=== PATIENT | female | born 1965 | race Two or more races ===

== ENCOUNTER 2017-11-29 13:57 | Emergency (ER) | payer SELFPAY ==
--- NOTE | 2017-11-29 14:23 | ER Document Report ---
ED Medical Screen (RME) - General Chief Complaint: Arm Pain Stated Complaint: DIZZINESS,SHORTNESS OF BREATH Time Seen by Provider: 11/29/17 14:12 Notes: RAPID MEDICAL EVALUATION DISCLOSURE I have seen this patient as part of a Rapid Medical Evaluation and, if applicable, placed any initially appropriate orders. The patient will be seen and fully evaluated, including a full history and physical exam, by a provider ( in Main ED or Fast Track) when a room becomes available. 52-year-old female here with complaints of shortness of breath and dizziness that started within the past day. The shortness of breath and dizziness is not worse with exertion or walking. It is not worse with lying flat. She does not have any associated chest pain discomfort tightness headache. She also complains of some left arm numbness that has been ongoing for the past 2 months , daily, episodic, lasting 15 minutes per episode. The arm numbness occurs almost always after she lays down to go to sleep. She is able to improve and resolve the symptoms by shaking her arm and having her massage the arm. The symptoms started back up again this morning. EXAM CTAB RRR TRAVEL OUTSIDE OF THE [place] IN LAST 30 DAYS: No - Related Data Allergies/Adverse Reactions: No Known Allergies Allergy (Unverified 11/29/17 13:58) Past Medical History - Social History Chew tobacco use (# tins/day): No Frequency of alcohol use: Rare Drug Abuse: None Renal/ Medical History: Denies: Hx Peritoneal Dialysis Past Surgical History: Reports: Hx Appendectomy, Hx Section - 1 Physical Exam - Vital signs Vitals: Temp Pulse Resp BP Pulse Ox 98.0 F 70 14 140/89 H 99 11/29/17 14:02 11/29/17 14:02 11/29/17 14:02 11/29/17 14:02 11/29/17 14:02 Course - Vital Signs Vital signs: Temp Pulse Resp BP Pulse Ox 98.0 F 70 14 140/89 H 99 11/29/17 14:02 11/29/17 14:02 11/29/17 14:02 11/29/17 14:02 11/29/17 14:02
[2017-11-29 14:54] LABS: ABSOLUTE BASOPHILS # (AUTO) 0.1 10^3/uL (0.0-0.2); ABSOLUTE EOSINOPHILS # (AUTO) 0.1 10^3/uL (0.0-0.6); ABSOLUTE LYMPHOCYTES (AUTO) 2.3 10^3/uL (0.5-4.7); ABSOLUTE MONOCYTES (AUTO) 0.5 10^3/uL (0.1-1.4); ABSOLUTE NEUT (AUTO) 5.8 10^3/uL (1.7-8.2); BASOPHILS % (AUTO) 0.7 % (0-2); EOSINOPHILS % (AUTO) 1.5 % (0-6); HEMATOCRIT 41.1 % (36.0-47.0); HEMOGLOBIN 13.8 g/dL (12.0-15.5); MEAN CORPUSCULAR HEMOGLOBIN 31.3 pg (27.0-33.4); MEAN CORPUSCULAR HGB CONC 33.7 g/dL (32.0-36.0); MEAN CORPUSCULAR VOLUME 93 fl (80-97); MONOCYTES % (AUTO) 5.8 % (3-13); PLATELET COUNT 278 10^3/uL (150-450); RED BLOOD COUNT 4.42 10^6/uL (3.72-5.28); TOTAL CELLS COUNTED % (AUTO) 100 %; WHITE BLOOD COUNT 8.8 10^3/uL (4.0-10.5)
--- NOTE | 2017-11-29 15:07 | RADIOLOGY REPORT (SQ) ---
EXAM DESCRIPTION: CHEST 2 VIEWS COMPLETED DATE/TIME: 11/29/2017 2:49 pm REASON FOR STUDY: SOB back pain COMPARISON: None. EXAM PARAMETERS: NUMBER OF VIEWS: two views TECHNIQUE: Digital Frontal and Lateral radiographic views of the chest acquired. RADIATION DOSE: NA LIMITATIONS: none FINDINGS: LUNGS AND PLEURA: No opacities, masses or pneumothorax. No pleural effusion. MEDIASTINUM AND HILAR STRUCTURES: No masses or contour abnormalities. HEART AND VASCULAR STRUCTURES: Heart normal size. No evidence for failure. BONES: No acute findings. HARDWARE: None in the chest. OTHER: No other significant finding. IMPRESSION: NO ACUTE RADIOGRAPHIC FINDING IN THE CHEST. TECHNICAL DOCUMENTATION: JOB ID: [id number] [employer]- All Rights Reserved Reading location - IP/workstation name: [email or web address]
[2017-11-29 15:12] LABS: ANION GAP 10 (5-19); BLOOD UREA NITROGEN 12 mg/dL (7-20); CALCIUM 9.8 mg/dL (8.4-10.2); CARBON DIOXIDE 27 mmol/L (22-30); CHLORIDE 108 mmol/L (98-107); GLUCOSE 97 mg/dL (75-110); SODIUM 145.2 mmol/L (137-145)
[2017-11-29 15:23] LABS: NT PRO BNP 85 pg/mL (5-900)
[2017-11-29 15:24] LABS: TROPONIN I < 0.012 ng/mL
[2017-11-29] MEDS ORDERED: MECLIZINE HCL 25 MG TABLET PO ONE (17:14)
--- NOTE | 2017-11-29 17:37 | ER Document Report ---
ED General - General Chief Complaint: Arm Pain Stated Complaint: DIZZINESS,SHORTNESS OF BREATH Time Seen by Provider: 11/29/17 14:12 TRAVEL OUTSIDE OF THE [place] IN LAST 30 DAYS: No - HPI Notes: 52-year-old female with no known medical problems presents with dizziness and lightheadedness since this morning. She reports a sensation of spinning with position change that improves with sitting still. She denies headache. She has had intermittent episodes of shortness of breath for the past 6 months. Usually this occurs with eating and also occurs randomly. Does not change with exertion. No chest pain. She has had these episodes of dizziness in the past, but has never been evaluated. Also reports intermittent episode of tingling in her left arm that wakes concern from sleep and improves with massage. Was seen at urgent care and advised to come to the emergency department for further evaluation. Also reports some discomfort in her left ankle. No history of coronary disease. Patient has been told her blood pressure runs low. She was not orthostatic at urgent care. - Related Data Allergies/Adverse Reactions: No Known Allergies Allergy (Unverified 11/29/17 13:58) Past Medical History - Social History Smoking Status: Never Smoker Chew tobacco use (# tins/day): No Frequency of alcohol use: Rare Drug Abuse: None Family History: Reviewed & Not Pertinent Patient has suicidal ideation: No Patient has homicidal ideation: No Renal/ Medical History: Denies: Hx Peritoneal Dialysis Past Surgical History: Reports: Hx Appendectomy, Hx Section - 1 Review of Systems - Review of Systems Notes: REVIEW OF SYSTEMS: CONSTITUTIONAL: -fevers, -chills, + fatigue, lightheadedness, dizziness EENT: -eye pain, -difficulty swallowing, -nasal congestion CARDIOVASCULAR: -chest pain, -syncope. RESPIRATORY: -cough, +SOB GASTROINTESTINAL: -abdominal pain, -nausea, -vomiting, -diarrhea GENITOURINARY: -dysuria, -hematuria MUSCULOSKELETAL: -back pain, -neck pain SKIN: -rash or skin lesions. HEMATOLOGIC: -easy bruising or bleeding. LYMPHATIC: -swollen, enlarged glands. NEUROLOGICAL: -altered mental status or loss of consciousness, -headache, negative weakness, + tingling left arm PSYCHIATRIC: -anxiety, -depression. Physical Exam - Vital signs Vitals: Temp Pulse Resp BP Pulse Ox 98.0 F 70 14 140/89 H 99 11/29/17 14:02 11/29/17 14:02 11/29/17 14:02 11/29/17 14:02 11/29/17 14:02 Interpretation: Hypertensive - Notes Notes: PHYSICAL EXAMINATION: GENERAL: Well-appearing, well-nourished and in no acute distress. HEAD: Atraumatic, normocephalic. EYES: Pupils equal round and reactive to light, extraocular movements intact, conjunctiva are normal. No nystagmus. ENT: nares patent, oropharynx clear without exudates. Moist mucous membranes. Bilateral middle ear effusion. No erythema. No sinus tenderness. NECK: Normal range of motion, supple without lymphadenopathy LUNGS: Breath sounds clear to auscultation bilaterally and equal. No wheezes rales or rhonchi. HEART: Regular rate and rhythm, no chest wall tenderness ABDOMEN: Soft, nontender, normoactive bowel sounds. No guarding, no rebound. No masses appreciated. EXTREMITIES: Normal range of motion, no pitting or edema. No cyanosis. NEUROLOGICAL: Cranial nerves grossly intact. Normal speech, normal gait. Normal sensory and motor exams. Normal gait. Normal finger to nose, rapid alternating movements, heel to nunez PSYCH: Normal mood, normal affect. SKIN: Warm, Dry, normal turgor, no rashes or lesions noted. Course - Re-evaluation Re-evalutation: 11/29/17 17:35 Symptoms have been present intermittently for several months. Symptoms not acute in onset and worsens with position change. She has bilateral middle ear effusions. Family states she has been swimming a lot lately. No nystagmus. Likely peripheral etiology. Will give Antivert. Advised Mucinex D. Mild hypertension, advised primary care follow-up. Discuss possible MRI if symptoms do not improve. No indication for emergent imaging at this time. Labs unremarkable. 11/29/17 17:43 No risk factors for pulmonary embolism. No current dyspnea. Low suspicion for pulmonary embolism or coronary artery disease as cause for dyspnea. Possible anxiety. - Vital Signs Vital signs: Temp Pulse Resp BP Pulse Ox 98.0 F 70 14 140/89 H 99 11/29/17 14:02 11/29/17 14:02 11/29/17 14:02 11/29/17 14:02 11/29/17 14:02 - Laboratory Result Diagrams: 11/29/17 14:39 11/29/17 14:39 Laboratory results interpreted by me: 11/29/17 14:39 Sodium 145.2 H Chloride 108 H Discharge - Discharge Clinical Impression: Vertigo Hypertension Qualifiers: Hypertension type: unspecified Qualified Code(s): I10 - Essential (primary) hypertension Dyspnea Qualifiers: Dyspnea type: unspecified Qualified Code(s): R06.00 - Dyspnea, unspecified Condition: Good Disposition: HOME, SELF-CARE Instructions: Vertigo ([facility]) Additional Instructions: Return for any worsening or concerning symptoms. You must obtain care from a primary care physician for further evaluation of elevated blood pressure, shortness of breath, and dizziness. If dizziness continues, you may need MRI. Take Mucinex D. Take Antivert as needed for dizziness. Prescriptions: Meclizine HCl [Antivert 25 mg Tablet] 25 mg PO TID PRN #21 tablet PRN Reason: Forms: Elevated Blood Pressure Referrals: JULAINNA WALKER MD [ACTIVE STAFF] - Follow up as needed Print Language: Kiswahili
[2017-11-29 17:59] VITALS: BP 125/72
--- NOTE | 2017-11-29 22:56 | EKG REPORT ---
SEVERITY:- BORDERLINE ECG - SINUS RHYTHM PROBABLE LEFT ATRIAL ABNORMALITY BORDERLINE T ABNORMALITIES, ANTERIOR LEADS : Confirmed by: Aziza Guo 29-Nov-2017 22:56:01
== END 2017-11-29 17:55 | disposition home or self-care (01) ==
LOC: ER 13:57
DX: R42 Dizziness and giddiness (principal); R06.02 Shortness of breath; I10 Essential (primary) hypertension; R20.2 Paresthesia of skin; R53.83 Other fatigue
CPT/HCPCS: 36415; 71046; 80048; 83880; 84484; 85025; 93005; 93010; 99285

== ENCOUNTER → 2018-10-30 | Outpatient (CLI) | payer SELFPAY ==
--- NOTE | 2018-10-30 18:44 | RADIOLOGY REPORT (SQ) ---
EXAM DESCRIPTION: CHEST 2 VIEWS COMPLETED DATE/TIME: 10/30/2018 6:35 pm REASON FOR STUDY: R05 COUGH COMPARISON: 11/29/2017 EXAM PARAMETERS: NUMBER OF VIEWS: two views TECHNIQUE: Digital Frontal and Lateral radiographic views of the chest acquired. RADIATION DOSE: NA LIMITATIONS: none FINDINGS: LUNGS AND PLEURA: No opacities, masses or pneumothorax. No pleural effusion. MEDIASTINUM AND HILAR STRUCTURES: No masses or contour abnormalities. HEART AND VASCULAR STRUCTURES: Heart normal size. No evidence for failure. BONES: No acute findings. HARDWARE: None in the chest. OTHER: No other significant finding. IMPRESSION: NO ACUTE RADIOGRAPHIC FINDING IN THE CHEST. TECHNICAL DOCUMENTATION: JOB ID: [id number] [employer]- All Rights Reserved Reading location - IP/workstation name: [email or web address]
== END ==
LOC: RAD 18:16
PROVIDERS: ATTEND Nurse Practitioner Family
DX: R05 Cough (principal)
CPT/HCPCS: 71046

== ENCOUNTER 2019-08-16 02:45 | Emergency (ER) | payer SELFPAY ==
[2019-08-16] MEDS ORDERED: HYDROMORPHONE HCL INJ/PF 2 MG/ML AMPULE IV ONE (03:06)
[2019-08-16] MEDS ORDERED: ONDANSETRON HCL INJ/PF 4 MG/2 ML SDV IV ONE (03:06)
--- NOTE | 2019-08-16 03:15 | ER Document Report ---
Entered by FELIBERTO FAUST SCRIBE 08/16/19 0303 Acting as scribe for:SAVANAH JIMÉNEZ IV, MD ED GI/ - General Chief Complaint: Abdominal Pain Stated Complaint: FLANK PAIN Time Seen by Provider: 08/16/19 03:01 Mode of Arrival: Ambulatory Information source: Patient Notes: This 54 year old female patient presents to the ED today with complaints of upper abdominal pain that started prior to arrival. Patient reports that the pain radiates to her back. Patient also reports x1 episode of vomiting. Patient denies dysuria or history of hypertension. Patient has a past surgical history of an appendectomy and section. TRAVEL OUTSIDE OF THE [place] IN LAST 30 DAYS: No - Related Data Allergies/Adverse Reactions: No Known Allergies Allergy (Unverified 11/29/17 13:58) Past Medical History - General Information source: Patient - Social History Smoking Status: Never Smoker Cigarette use (# per day): No Chew tobacco use (# tins/day): No Smoking Education Provided: No Family History: Reviewed & Not Pertinent Patient has suicidal ideation: No Patient has homicidal ideation: No Past Surgical History: Reports: Hx Appendectomy, Hx Section - x1 Review of Systems - Review of Systems Constitutional: No symptoms reported EENT: No symptoms reported Cardiovascular: No symptoms reported Respiratory: No symptoms reported Gastrointestinal: See HPI, Abdominal pain, Nausea, Vomiting Genitourinary: See HPI. denies: Dysuria Female Genitourinary: No symptoms reported Musculoskeletal: See HPI, Back pain Skin: No symptoms reported Hematologic/Lymphatic: No symptoms reported Neurological/Psychological: No symptoms reported -: Yes All other systems reviewed and negative Physical Exam - Vital signs Vitals: Pulse Resp Pulse Ox 63 24 H 100 08/16/19 02:57 08/16/19 02:57 08/16/19 02:57 - General General appearance: Alert In distress: Moderate - HEENT Head: Normocephalic, Atraumatic Eyes: Normal Pupils: PERRL - Respiratory Respiratory status: No respiratory distress Chest status: Nontender Breath sounds: Normal Chest palpation: Normal - Cardiovascular Rhythm: Regular Heart sounds: Normal auscultation Murmur: No Friction rub: No Gallop: None auscultated - Abdominal Inspection: Normal Distension: No distension Bowel sounds: Normal Tenderness: Nontender - Abdomen soft Organomegaly: No organomegaly - Back Back: CVA tenderness - Positive CVA tenderness to percussion bilaterally - Extremities General upper extremity: Normal inspection General lower extremity: Normal inspection - Neurological Neuro grossly intact: Yes - Psychological Associated symptoms: Normal affect, Normal mood - Skin Skin Temperature: Warm Skin Moisture: Dry Skin Color: Normal Course - Re-evaluation Re-evalutation: 08/16/19 05:42 Results of ED MSE discussed with patient using biscuit machine operator. All questions were answered prior to discharge. Emergency signs and symptoms, reasons to return to the emergency department discussed with patient. - Vital Signs Vital signs: Temp Pulse Resp BP Pulse Ox 97.5 F 71 18 98/57 L 93 08/16/19 03:23 08/16/19 04:21 08/16/19 04:31 08/16/19 04:31 08/16/19 04:31 - Laboratory Result Diagrams: 08/16/19 03:04 08/16/19 03:04 Laboratory results interpreted by me: 08/16/19 08/16/19 08/16/19 03:04 03:04 03:04 WBC 10.9 H Chloride 108 H Glucose 151 H AST 72 H ALT 39 H Urine Blood SMALL H Ur Leukocyte Esterase SMALL H - Diagnostic Test Radiology reviewed: Reports reviewed Discharge - Discharge Clinical Impression: Acute abdominal pain Nausea and vomiting Qualifiers: Vomiting type: unspecified Vomiting Intractability: non-intractable Qualified Code(s): R11.2 - Nausea with vomiting, unspecified Condition: Good Disposition: HOME, SELF-CARE Instructions: Abdominal Pain ([facility]), Antinausea Medication ([facility]), Vomiting ([facility]) Additional Instructions: Return to the Emergency Department without delay if any worse. HOME CARE INSTRUCTIONS & INFORMATION: Thank you for choosing us for your me dical needs. We hope you're satisfied with the care you received. After you leave, you must properly care for your problem and, at the same time, observe its progress. Any condition can change. Some illnesses can change rapidly over hours or days. If your condition worsens, return to the Emergency Department or see your physician promptly. ABOUT YOUR X-RAYS AND EKG'S: If you had an EKG or X-rays taken, they have been read by the Emergency Physician. The X-rays and EKG's will also be read by a Radiologist or Summer Internship within 24 hours. If discrepancies are noted, you will be notified by telephone. Please be certain the ED has a correct telephone number & address where you can be reached. Also, realize that some fractures or abnormalities do not show up on initial X-rays. If your symptoms continue, see your physician. ABOUT YOUR LABORATORY TEST: If you had laboratory tests, the results have been reviewed by the Emergency Physician. Some test results (for example cultures) may not be available for several days. You will be contacted if any test result shows you need additional treatment. Please be certain the ED has a correct telephone number and address where you can be reached. ABOUT YOUR MEDICATIONS: You will receive instructions on how to take your medicine on the prescription label you receive. Additional information may be provided by the Pharmacy. If you have questions afterwards, call the ED for clarification or further instructions. Some prescribed medications may cause drowsiness. Do not perform tasks such as driving a car or operating machinery without consulting your Pharmacist. If you feel you need a refill of pain medication, your condition will need re-evaluation. Please do not call for a refill of any medication. ABOUT YOUR SIGNATURE: Signature of this document acknowledges to followin. Understanding that you received emergency treatment and that you may be released before al medical problems are known or treated. Please be certain the ED has a correct phone number & address where you can be reached. 2. Acknowledgement that you will arrange for follow-up care as recommended. 3. Authorization for the Emergency Physician to provide information to your follow-up Physician in order to maximize your care. AT ANY TIME, IF YOUR SYMPTOMS CHANGE SIGNIFICANTLY OR WORSEN OR YOU DEVELOP NEW SYMPTOMS, RETURN TO THE EMERGENCY DEPARTMENT IMMEDIATELY FOR RE-EVALUATION. OUR GOAL IS TO PROVIDE EXCELLENT MEDICAL CARE! WE HOPE THAT WE HAVE MET YOUR EXPECTATIONS DURING YOUR EMERGENCY DEPARTMENT VISIT AND THAT YOU FEEL YOU HAVE RECEIVED EXCELLENT CARE! Prescriptions: Ibuprofen [Ibu] 600 mg PO Q8HP PRN #15 tablet PRN Reason: pain Promethazine HCl [Phenergan 25 mg Tablet] 1 tab PO Q6H PRN #15 tablet PRN Reason: Referrals: TC WHITMORE MD [HONORARY] - Follow up as needed Print Language: Rwandan I personally performed the services described in the documentation, reviewed and edited the documentation which was dictated to the scribe in my presence, and it accurately records my words and actions.
[2019-08-16 03:21] LABS: ABSOLUTE BASOPHILS # (AUTO) 0.1 10^3/uL (0.0-0.2); ABSOLUTE EOSINOPHILS # (AUTO) 0.2 10^3/uL (0.0-0.6); ABSOLUTE LYMPHOCYTES (AUTO) 3.5 10^3/uL (0.5-4.7); ABSOLUTE MONOCYTES (AUTO) 0.6 10^3/uL (0.1-1.4); ABSOLUTE NEUT (AUTO) 6.6 10^3/uL (1.7-8.2); BASOPHILS % (AUTO) 0.5 % (0-2); EOSINOPHILS % (AUTO) 1.7 % (0-6); HEMATOCRIT 39.8 % (36.0-47.0); HEMOGLOBIN 13.6 g/dL (12.0-15.5); LYMPHOCYTES % (AUTO) 31.8 % (13-45); MEAN CORPUSCULAR HEMOGLOBIN 31.7 pg (27.0-33.4); MEAN CORPUSCULAR HGB CONC 34.3 g/dL (32.0-36.0); MEAN CORPUSCULAR VOLUME 93 fl (80-97); MONOCYTES % (AUTO) 5.2 % (3-13); PLATELET COUNT 285 10^3/uL (150-450); RED CELL DISTRIBUTION WIDTH 13.1 % (11.5-14.0); SEGMENTED NEUTROPHILS % (AUTO) 60.8 % (42-78); TOTAL CELLS COUNTED % (AUTO) 100 %; WHITE BLOOD COUNT 10.9 10^3/uL (4.0-10.5)
[2019-08-16 03:23] LABS: APPEARANCE,URINE SLIGHTLY-CLOUDY; BILIRUBIN,URINE NEGATIVE (NEGATIVE); COLOR,URINE YELLOW; GLUCOSE, URINE NEGATIVE (NEGATIVE); KETONES,URINE NEGATIVE (NEGATIVE); LEUKOCYTE ESTERASE,URINE SMALL (NEGATIVE); NITRITE,URINE NEGATIVE (NEGATIVE); PROTEIN,URINE NEGATIVE (NEGATIVE); URINE SPECIFIC GRAVITY 1.021; UROBILINOGEN,URINE NEGATIVE mg/dL (<2.0)
[2019-08-16] MEDS ORDERED: NORMAL SALINE 1000 ML 1,000 ML IV ONE (03:31)
[2019-08-16 03:36] LABS: ALBUMIN 4.1 g/dL (3.5-5.0); ALKALINE PHOSPHATASE 108 U/L (38-126); ANION GAP 9 (5-19); ASPARTATE AMINO TRANSFERASE 72 U/L (14-36); BILIRUBIN,DIRECT 0.2 mg/dL (0.0-0.4); BILIRUBIN,TOTAL 0.4 mg/dL (0.2-1.3); BLOOD UREA NITROGEN 18 mg/dL (7-20); CALCIUM 9.7 mg/dL (8.4-10.2); CARBON DIOXIDE 23 mmol/L (22-30); CHLORIDE 108 mmol/L (98-107); GLUCOSE 151 mg/dL (75-110); POTASSIUM 4.2 mmol/L (3.6-5.0); TOTAL PROTEIN 7.2 g/dL (6.3-8.2)
--- NOTE | 2019-08-16 04:36 | RADIOLOGY REPORT (SQ) ---
CT ABDOMEN AND PELVIS WITH AND WITHOUT INTRAVENOUS CONTRAST: 08/16/2019 3:32 AM CDT HISTORY: 54-year old with bilateral flank and abdominal pain. COMPARISON: None available TECHNIQUE: Axial contiguous images were obtained from the lung bases to the proximal femurs with and without intravenous intravenous contrast administered. Sagittal and coronal reconstructions were also obtained and reviewed. This exam was performed according to our departmental dose-optimization program, which includes automated exposure control, adjustment of the mA and/or KV according to the patient's size and/or use of iterative reconstruction technique. FINDINGS: No focal consolidative airspace opacities are seen. No discrete pleural effusion is seen. The visualized hepatic parenchyma is unremarkable. No focal enhancing lesion is seen. The gallbladder demonstrates no evidence of calcified gallstones The spleen, pancreas, and adrenals are normal in size and contour. The kidneys demonstrate no evidence of hydronephrosis. No renal or ureteral calculi are seen. No focal filling defect is seen at the visualized ureters, collecting systems, or urinary bladder. Bladder is minimally distended, but grossly appears unremarkable. The uterus is present. There is a calcification projecting at the right adnexa. The stomach is not well distended. The small bowel loops appear unremarkable. No pericolonic inflammatory stranding is seen. There are multiple diverticula seen within the sigmoid and descending colon, without evidence to suggest diverticulitis. The appendix appears unremarkable. There is no evidence of pneumoperitoneum or free fluid. The aorta and IVC appear normal in size. No significantly enlarged lymph nodes are seen in the abdomen or pelvis. Review of the bone show no evidence of any suspicious lytic or blastic lesions. IMPRESSION: No acute process is seen within the abdomen or pelvis.
[2019-08-16] MEDS ORDERED: PROMETHAZINE HCL INJ 25 MG/1 ML VIAL IV ONE (05:02)
[2019-08-16 06:11] VITALS: BP 117/62
== END 2019-08-16 06:12 | disposition home or self-care (01) ==
LOC: ER 02:45
DX: R11.2 Nausea with vomiting, unspecified (principal); R10.9 Unspecified abdominal pain; R10.10 Upper abdominal pain, unspecified; M54.9 Dorsalgia, unspecified
CPT/HCPCS: 99284; 96361; 96374; 96375; 36415; 83690; 85025; 80053; 81001; 74178; J1170; J2550; J2405; J7030

== ENCOUNTER → 2019-09-24 | Outpatient (CLI) | payer OTHER ==
--- NOTE | 2019-09-24 11:03 | RADIOLOGY REPORT (SQ) ---
EXAM DESCRIPTION: T SPINE AP/LAT IMAGES COMPLETED DATE/TIME: 09/24/2019 9:10 am REASON FOR STUDY: CHRONIC MIDLINE BACK PAIN M54.9 DORSALGIA, UNSPECIFIED COMPARISON: None. NUMBER OF VIEWS: Two views. TECHNIQUE: AP and lateral radiographic images acquired of the thoracic spine. LIMITATIONS: None. FINDINGS: MINERALIZATION: Normal. ALIGNMENT: No scoliotic curvature or spondylolisthesis. VERTEBRAE: The thoracic vertebral body heights are preserved. There is no fracture or segmentation a bnormality. DISCS: The intervertebral disc spaces are preserved. There are no sizable osteophytes. HARDWARE: None in the spine. MEDIASTINUM AND SOFT TISSUES: The cardiomediastinal silhouette is normal. VISUALIZED LUNG WESTFALL: Clear. OTHER: No other finding. IMPRESSION: No acute osseous abnormality of the thoracic spine. TECHNICAL DOCUMENTATION: JOB ID: [id number] 2010 [employer]- All Rights Reserved Reading location - IP/workstation name: [email or web address]
--- NOTE | 2019-09-24 11:08 | RADIOLOGY REPORT (SQ) ---
EXAM DESCRIPTION: LUMBAR SPINE COMPLETE IMAGES COMPLETED DATE/TIME: 09/24/2019 9:10 am REASON FOR STUDY: CHRONIC MIDLINE BACK PAIN M54.9 DORSALGIA, UNSPECIFIED COMPARISON: None. NUMBER OF VIEWS: Five views including obliques. TECHNIQUE: AP, lateral, oblique, and sacral radiographic images acquired of the lumbar spine. LIMITATIONS: None. FINDINGS: MINERALIZATION: Normal. SEGMENTATION: There are 5 lumbar-type vertebral bodies. There is no transitional anatomy at the lumb osacral junction. ALIGNMENT: No scoliotic curvature or spondylolisthesis. VERTEBRAE: The lumbar vertebral body heights are preserved. There is no fracture. DISCS: The intervertebral disc spaces are preserved. POSTERIOR ELEMENTS: Intact. There is no pars interarticularis defect. HARDWARE: None in the spine. PARASPINAL SOFT TISSUES: No radiographic abnormality. PELVIS: Intact. OTHER: No other finding. IMPRESSION: No acute osseous abnormality of the lumbar spine. TECHNICAL DOCUMENTATION: JOB ID: [id number] 2010 [employer]- All Rights Reserved Reading location - IP/workstation name: [email or web address]
== END ==
LOC: OD 08:41
PROVIDERS: ATTEND Nurse Practitioner Family
DX: M54.9 Dorsalgia, unspecified (principal)
CPT/HCPCS: 72070; 72110

== ENCOUNTER 2019-09-26 15:42 | Emergency (ER) | payer OTHER ==
--- NOTE | 2019-09-26 16:24 | ER Document Report ---
ED Medical Screen (RME) - General Chief Complaint: Abdominal Pain Stated Complaint: ABDOMINAL PAIN, BACK PAIN Time Seen by Provider: 09/26/19 16:20 Primary Care Provider: TORI BURRIS FNP [Primary Care Provider] - Follow up as needed Mode of Arrival: Wheelchair Information source: Patient Notes: 54-year-old female patient presented to the emergency department chief complaint for abdominal swelling and back pain. Patient reports symptoms started this morning. She states that she has some type of medical history that causes this to happen a few times a year however she is not sure what it is called in Ma[place]. She is primarily Moldovan-speaking. She denies any nausea, vomiting or diarrhea. She has not had fever. She reports a normal bowel movement this morning. Patient also complains of pain to her right lateral/posterior neck that started yesterday morning. Abdomen distended. I have greeted and performed a rapid initial assessment of this patient. A comprehensive ED assessment and evaluation of the patient, analysis of test results and completion of the medical decision making process will be conducted by additional ED providers. I have specifically instructed the patient or family members with the patient to immediately return to any nursing staff should anything change in the patient's condition or with their chief complaint. TRAVEL OUTSIDE OF THE [place] IN LAST 30 DAYS: No - Related Data Allergies/Adverse Reactions: No Known Allergies Allergy (Unverified 11/29/17 13:58) Past Medical History Renal/ Medical History: Denies: Hx Peritoneal Dialysis Past Surgical History: Reports: Hx Appendectomy, Hx Section - x1 Physical Exam - Vital signs Vitals: Temp Pulse Resp BP Pulse Ox 98.3 F 78 16 142/64 H 97 09/26/19 15:48 09/26/19 15:48 09/26/19 15:48 09/26/19 15:48 09/26/19 15:48 Course - Vital Signs Vital signs: Temp Pulse Resp BP Pulse Ox 98.3 F 78 16 142/64 H 97 09/26/19 15:48 09/26/19 15:48 09/26/19 15:48 09/26/19 15:48 09/26/19 15:48 Doctor's Discharge - Discharge Referrals: TORI BURRIS FNP [Primary Care Provider] - Follow up as needed
[2019-09-26 16:48] LABS: ABSOLUTE BASOPHILS # (AUTO) 0.1 10^3/uL (0.0-0.2); ABSOLUTE EOSINOPHILS # (AUTO) 0.1 10^3/uL (0.0-0.6); ABSOLUTE MONOCYTES (AUTO) 0.5 10^3/uL (0.1-1.4); BASOPHILS % (AUTO) 1.1 % (0-2); EOSINOPHILS % (AUTO) 1.5 % (0-6); HEMOGLOBIN 14.1 g/dL (12.0-15.5); LYMPHOCYTES % (AUTO) 23.2 % (13-45); MEAN CORPUSCULAR HGB CONC 34.4 g/dL (32.0-36.0); MEAN CORPUSCULAR VOLUME 93 fl (80-97); MONOCYTES % (AUTO) 5.2 % (3-13); PLATELET COUNT 272 10^3/uL (150-450); RED BLOOD COUNT 4.41 10^6/uL (3.72-5.28); RED CELL DISTRIBUTION WIDTH 13.3 % (11.5-14.0); TOTAL CELLS COUNTED % (AUTO) 100 %; WHITE BLOOD COUNT 8.8 10^3/uL (4.0-10.5)
[2019-09-26 16:49] LABS: APPEARANCE,URINE CLEAR; BILIRUBIN,URINE NEGATIVE (NEGATIVE); COLOR,URINE YELLOW; GLUCOSE, URINE NEGATIVE (NEGATIVE); KETONES,URINE NEGATIVE (NEGATIVE); LEUKOCYTE ESTERASE,URINE NEGATIVE (NEGATIVE); NITRITE,URINE NEGATIVE (NEGATIVE); PROTEIN,URINE NEGATIVE (NEGATIVE); URINE SPECIFIC GRAVITY 1.023; UROBILINOGEN,URINE NEGATIVE mg/dL (<2.0)
[2019-09-26 17:06] LABS: ALBUMIN 4.2 g/dL (3.5-5.0); ALKALINE PHOSPHATASE 100 U/L (38-126); ANION GAP 7 (5-19); ASPARTATE AMINO TRANSFERASE 28 U/L (14-36); BILIRUBIN,TOTAL 0.3 mg/dL (0.2-1.3); BLOOD UREA NITROGEN 17 mg/dL (7-20); CALCIUM 9.9 mg/dL (8.4-10.2); CARBON DIOXIDE 25 mmol/L (22-30); CHLORIDE 107 mmol/L (98-107); GLUCOSE 127 mg/dL (75-110); POTASSIUM 3.7 mmol/L (3.6-5.0); TOTAL PROTEIN 7.2 g/dL (6.3-8.2)
--- NOTE | 2019-09-26 17:41 | RADIOLOGY REPORT (SQ) ---
EXAM DESCRIPTION: KUB/ABDOMEN (SINGLE VIEW) IMAGES COMPLETED DATE/TIME: 09/26/2019 5:12 pm REASON FOR STUDY: abd distention COMPARISON: None. NUMBER OF VIEWS: One view. TECHNIQUE: Supine radiographic image of the abdomen acquired. LIMITATIONS: None. FINDINGS: BOWEL GAS PATTERN: Normal bowel gas pattern. No dilated loops. CALCIFICATIONS: No suspicious calcifications. SOFT TISSUES: No gross mass or suggestion of organomegaly. HARDWARE: None in the abdomen. BONES: No acute fracture. No worrisome bone lesions. OTHER: No other significant finding. IMPRESSION: NO RADIOGRAPHIC EVIDENCE FOR ACUTE ABDOMINAL DISEASE. TECHNICAL DOCUMENTATION: JOB ID: [id number] 2010 [employer]- All Rights Reserved Reading location - IP/workstation name: [email or web address]
[2019-09-26 18:18] VITALS: BP 131/73
--- NOTE | 2019-09-26 18:57 | ER Document Report ---
ED General - General Chief Complaint: Abdominal Pain Stated Complaint: ABDOMINAL PAIN, BACK PAIN Time Seen by Provider: 09/26/19 16:20 Primary Care Provider: TORI BURRIS FNP [Primary Care Provider] - Follow up as needed Mode of Arrival: Wheelchair TRAVEL OUTSIDE OF THE [place] IN LAST 30 DAYS: No - HPI Notes: Patient is a 54-year-old female who presents to the emergency department for evaluation of abdominal pain. She states is been getting is intermittently over the last 8 years. She states she gets it badly about 3 times a year. She described it as a burning. She states is over her entire abdomen. She denies any fever chills. No nausea or vomiting. No melena or hematochezia. She has normal bowel movements. She takes [id number] Prilosec 20 mg and states that seems to help. She states she has been told she needs to take it daily, but does not like this idea, so admits she has not been taking it daily. She states that she very much likes to eat spicy foods, including chili, and drinks a moderate amount of caffeine. - Related Data Allergies/Adverse Reactions: No Known Allergies Allergy (Unverified 11/29/17 13:58) Home Medications: Prilosec. tylenol. celexa Past Medical History - General Information source: Patient - Social History Smoking Status: Never Smoker Chew tobacco use (# tins/day): No Frequency of alcohol use: None Drug Abuse: None Family History: Reviewed & Not Pertinent Patient has homicidal ideation: No Renal/ Medical History: Denies: Hx Peritoneal Dialysis Past Surgical History: Reports: Hx Appendectomy, Hx Section - x1 Review of Systems - Review of Systems Gastrointestinal: See HPI -: Yes All other systems reviewed and negative Physical Exam - Vital signs Vitals: Temp Pulse Resp BP Pulse Ox 98.3 F 78 16 142/64 H 97 09/26/19 15:48 09/26/19 15:48 09/26/19 15:48 09/26/19 15:48 09/26/19 15:48 - Notes Notes: Vital signs reviewed, please refer to chart. Head is normocephalic, atraumatic. Pupils equal round, reactive to light. Neck is supple without meningismus. Heart is regular rate and rhythm. Lungs are clear to auscultation bilaterally. Abdomen is soft, diffusely tender without rebound or guarding, normoactive bowel sounds throughout. Extremities without cyanosis, clubbing. Posterior calves are nontender. Peripheral pulses are equal. Skin is warm and dry. Patient is awake, alert, neurological exam is nonfocal. Course - Re-evaluation Re-evalutation: 09/26/19 18:55 Patient presents to the emergency department for evaluation. She actually states he has no pain right now, she states he had severe pain earlier and it was helped significantly by the Prilosec. We talked at length. We talked about gastritis, acid reflux, peptic ulcer disease. We talked about dietary and lifestyle changes that might help her. I explained to her that taking the Prilosec daily was advisable. I will also recommend that she take an H2 steffanie when her pain is severe to see if it helps her pain. She understands this. She states she was here primarily because her son told her she looked pale when her pain was significant. She has no pallor right now. She is stable. Her vital signs are normal. Her lab work is unremarkable. I will send her home, encouraged her to take the omeprazole daily, encouraged lifestyle changes in regards to her diet, and return to the ED with worsening. Otherwise she is to follow-up with primary care. - Vital Signs Vital signs: Temp Pulse Resp BP Pulse Ox 98.3 F 64 18 131/73 H 97 09/26/19 18:17 09/26/19 18:17 09/26/19 18:17 09/26/19 18:17 09/26/19 18:17 - Laboratory Result Diagrams: 09/26/19 16:30 09/26/19 16:30 Laboratory results interpreted by me: 09/26/19 16:30 Glucose 127 H - Diagnostic Test Radiology reviewed: Image reviewed, Reports reviewed Radiology results interpreted by in: 09/26/19 18:56 KUB X-Ray 09/26/19 16:26 IMPRESSION: NO RADIOGRAPHIC EVIDENCE FOR ACUTE ABDOMINAL DISEASE. Discharge - Discharge Clinical Impression: Gastritis Qualifiers: Gastritis type: unspecified gastritis Chronicity: chronic Gastritis bleeding: without bleeding Qualified Code(s): K29.50 - Unspecified chronic gastritis without bleeding Condition: Stable Disposition: HOME, SELF-CARE Instructions: Gastritis ([facility]), Reflux Disease (GERD) ([facility]) Additional Instructions: Avoid spicy foods, acidic foods, caffeine, nicotine, alcohol. Please take the omeprazole daily. You can add famotidine, and [id number] medication,if your pain increases, as needed. Please follow-up with primary care next week. If you develop increased pain, vomiting, black or tarry stools, or any other new or concerning symptoms, please return to the emergency department for evaluation. Referrals: TORI BURRIS FNP [Primary Care Provider] - Follow up as needed
== END 2019-09-26 19:10 | disposition home or self-care (01) ==
LOC: ER 15:42
DX: K29.50 Unspecified chronic gastritis without bleeding (principal); R10.9 Unspecified abdominal pain
CPT/HCPCS: 36415; 74018; 80053; 81001; 83690; 85025; 99284

== ENCOUNTER 2019-12-07 03:33 | Emergency (ER) | payer OTHER ==
[2019-12-07 04:03] LABS: ABSOLUTE BASOPHILS # (AUTO) 0.1 10^3/uL (0.0-0.2); ABSOLUTE EOSINOPHILS # (AUTO) 0.2 10^3/uL (0.0-0.6); ABSOLUTE MONOCYTES (AUTO) 0.5 10^3/uL (0.1-1.4); ABSOLUTE NEUT (AUTO) 7.8 10^3/uL (1.7-8.2); EOSINOPHILS % (AUTO) 1.5 % (0-6); HEMATOCRIT 37.4 % (36.0-47.0); HEMOGLOBIN 12.8 g/dL (12.0-15.5); LYMPHOCYTES % (AUTO) 26.2 % (13-45); MEAN CORPUSCULAR HEMOGLOBIN 32.3 pg (27.0-33.4); MEAN CORPUSCULAR HGB CONC 34.1 g/dL (32.0-36.0); MEAN CORPUSCULAR VOLUME 95 fl (80-97); MONOCYTES % (AUTO) 3.9 % (3-13); RED BLOOD COUNT 3.96 10^6/uL (3.72-5.28); SEGMENTED NEUTROPHILS % (AUTO) 67.4 % (42-78); TOTAL CELLS COUNTED % (AUTO) 100 %; WHITE BLOOD COUNT 11.6 10^3/uL (4.0-10.5)
--- NOTE | 2019-12-07 04:24 | ER Document Report ---
Entered by FELIBERTO FAUST SCRIBE 12/07/19 0410 Acting as scribe for:SAVANAH JIMÉNEZ IV, MD ED General - General Mode of Arrival: Medic Information source: Relative - Daughter, Emergency Med Personnel TRAVEL OUTSIDE OF THE [place] IN LAST 30 DAYS: No <SAVANAH JIMÉNEZ IV - Last Filed: 12/07/19 04:24> <OSMANMIKE J - Last Filed: 12/07/19 16:29> - General Chief Complaint: Probable Seizure Stated Complaint: ALTERED MENTAL STATUS Time Seen by Provider: 12/07/19 03:40 Primary Care Provider: TORI BURRIS FNP [Primary Care Provider] - Follow up as needed Notes: This 54 year old Lebanese-speaking female patient brought in by EMS from home presents to the ED today with complaints of possible seizure-like activity that occurred just prior to arrival. ED nurse reports that the incident was witnessed by the patient's , but he was unable to give any details because he speaks Lebanese. Patient was also incontinent of urine and had a positive tongue bite per ED nurse. Daughter at bedside states that the patient complained of a right-sided CHILDRESS and right eye swelling/twitching for the last x3 days. Denies prior history of seizures. Denies any past medical history or medications. Denies any neck pain. (SAVANAH JIMÉNEZ IV) - Related Data Allergies/Adverse Reactions: No Known Allergies Allergy (Unverified 11/29/17 13:58) Past Medical History - General Information source: Relative - Daughter - Social History Smoking Status: Unknown if Ever Smoked Smoking Education Provided: No Family History: Reviewed & Not Pertinent Patient has homicidal ideation: No GI Medical History: Reports: Hx Gastroesophageal Reflux Disease Past Surgical History: Reports: Hx Appendectomy, Hx Section - x1 <SAVANAH JIMÉNEZ IV - Last Filed: 12/07/19 04:24> Review of Systems - Review of Systems Constitutional: No symptoms reported EENT: No symptoms reported Cardiovascular: No symptoms reported Respiratory: No symptoms reported Gastrointestinal: No symptoms reported Genitourinary: See HPI, Incontinence Female Genitourinary: No symptoms reported Musculoskeletal: See HPI. denies: Neck pain Skin: No symptoms reported Hematologic/Lymphatic: No symptoms reported Neurological/Psychological: See HPI, Seizure -: Yes All other systems reviewed and negative <SAVANAH JIMÉNEZ IV - Last Filed: 12/07/19 04:24> Physical Exam - General General appearance: Alert In distress: None - HEENT Head: Normocephalic Eyes: Normal Extraocular movements intact: Yes Pupils: PERRL Mouth/Lips: Other - Macerated tissue noted to left side of tongue - Respiratory Respiratory status: No respiratory distress Chest status: Nontender Breath sounds: Normal Chest palpation: Normal - Cardiovascular Rhythm: Regular Heart sounds: Normal auscultation Murmur: No Friction rub: No Gallop: None auscultated - Abdominal Inspection: Normal Distension: No distension Bowel sounds: Normal Tenderness: Nontender - Abdomen soft Organomegaly: No organomegaly - Back Back: Normal, Nontender - Extremities General upper extremity: Normal inspection General lower extremity: Normal inspection. No: Edema - Neurological Neuro grossly intact: Yes - Psychological Associated symptoms: Normal affect, Normal mood - Skin Skin irregularity: other - Abrasion noted to bridge of nose <SAVANAH JIMÉNEZ IV - Last Filed: 12/07/19 04:24> - Vital signs Vitals: Pulse Resp BP Pulse Ox 91 18 132/76 H 92 12/07/19 03:39 12/07/19 03:39 12/07/19 03:39 12/07/19 03:39 Course - Laboratory Result Diagrams: 12/07/19 03:36 12/07/19 03:36 <SAVANAH JIMÉNEZ IV - Last Filed: 12/07/19 04:24> - Laboratory Result Diagrams: 12/07/19 03:36 12/07/19 04:19 - Diagnostic Test Radiology reviewed: Image reviewed, Reports reviewed <MIKE BREWER - Last Filed: 12/07/19 16:29> - Re-evaluation Re-evalutation: 12/07/19 16:00 Patient has a meningioma extra-axial causing vasogenic edema and swelling. Patient had new onset seizure today as result of this activity of brain swelli ng. Patient has been having headache and blurred vision and symptoms over more than 1 or 2 months at this point in time. It was unknown as to what the cause of this was until today when she had her first onset of seizure activity where a CT scan was done which prompted an MRI scan for further delineation discussion of what was demonstration of what was causing her brain edema. Discussed already with Dr. from at the [facility] neurosurgery service who recommended that 1 if patient felt stable was stable and was in her condition could warrant that she could be discharged home as opposed to be transferred that was a desirable option as well as if patient was not stable enough to go home and to call back to see if we can continue to transfer process. So that is where we are at this point with the case patient feels uncomfortable and too weak at this time to be discharged home and prefers to be transferred to [facility] at this moment in time we are pending a return call from [facility] regarding transfer status. 12/07/19 16:10 In summary patient was loaded with IV Keppra 1500 mg earlier today along with IV mannitol and IV Decadron. Patient did not tolerate the mannitol because it was burning at the IV site no evidence of any allergic reaction or extravasation however the mannitol was stopped. Patient has been resting comfortably up to now she still feels generally weak all over alert. has indicated stated transfer team advised that he has accepted patient to his service which is the neurosurgery service at [facility] in [facility]. Mindful low they have a bed crunch at this time and as we speak we are not certain as to when a bed available will be available to her and until that time patient will remain on service until bed availability is obtained at [facility]. Plan is to continue patient on every 6 hours Decadron 4 mg and Keppra to control seizure activity. (MIKE BREWER) - Vital Signs Vital signs: Temp Pulse Resp BP Pulse Ox 98 F 91 21 H 142/77 H 97 12/07/19 03:50 12/07/19 03:39 12/07/19 15:01 12/07/19 15:00 12/07/19 15:01 12/07/19 16:03 Vital signs are stable (MIKE BREWER) - Laboratory Laboratory results interpreted by me: 12/07/19 12/07/19 03:36 04:19 WBC 11.6 H Plt Count 126 L Chloride 111 H Glucose 111 H Total Protein 6.2 L Albumin 3.4 L 12/07/19 16:03 Lab reports are essentially unremarkable (MIKE BREWER) - Diagnostic Test Radiology results interpreted by me: 12/07/19 16:08 Chest x-ray no acute process CT scan of head shows extensive bifrontal vasogenic edema with a large midline anterior inferior extra-axial mass MRI scan of brain shows an extra axial mass inferior and bilateral frontal lobes with a mass-effect of on the proximal optic nerves mass-effect in the midline of 5 cm ;no infarct noted no hemorrhage noted (MIKE BREWER) - EKG Interpretation by Me Additional EKG results interpreted by me: 12/07/19 16:10 Twelve-lead EKG shows normal sinus rhythm no acute process (MIKE BREWER) Critical Care Note - Critical Care Note Total time excluding time spent on procedures (mins): 65 - Management of vaso genic edema due to a mass-effect for a presumed meningioma in the anterior frontal regions of patient's brain. Also seizure disorder as a result of this condition. Discussions with neurosurgeons in the transfer center . IV fluid management, IV management of brain edema, and seizure activity control. Reviewing and discussing condition of patient with receiving neurosurgeon at [facility] <MIKE BREWER - Last Filed: 12/07/19 16:29> Discharge <SAVANAH JIMÉNEZ IV - Last Filed: 12/07/19 04:24> <MIKE BREWER - Last Filed: 12/07/19 16:29> - Discharge Clinical Impression: Meningioma, Vasogenic brain edema, Seizure Condition: Critical Disposition: [facility] Referrals: TORI BURRIS FNP [Primary Care Provider] - Follow up as needed I personally performed the services described in the documentation, reviewed and edited the documentation which was dictated to the scribe in my presence, and it accurately records my words and actions.
[2019-12-07 04:31] LABS: PLATELET COUNT 126 10^3/uL (150-450)
[2019-12-07 04:46] LABS: ALBUMIN 3.4 g/dL (3.5-5.0); ALKALINE PHOSPHATASE 82 U/L (38-126); ANION GAP 6 (5-19); ASPARTATE AMINO TRANSFERASE 28 U/L (14-36); BILIRUBIN,TOTAL 0.3 mg/dL (0.2-1.3); BLOOD UREA NITROGEN 15 mg/dL (7-20); CALCIUM 9.1 mg/dL (8.4-10.2); CARBON DIOXIDE 22 mmol/L (22-30); CHLORIDE 111 mmol/L (98-107); GLUCOSE 111 mg/dL (75-110); POTASSIUM 3.7 mmol/L (3.6-5.0); TOTAL PROTEIN 6.2 g/dL (6.3-8.2)
[2019-12-07 04:49] LABS: ALCOHOL < 10 mg/dL (NONE DETECTED)
--- NOTE | 2019-12-07 05:08 | RADIOLOGY REPORT (SQ) ---
EXAM DESCRIPTION: XR CHEST 1 VIEW COMPLETED DATE/TME: 12/07/2019 04:10 CLINICAL HISTORY: 54 years, Female, ams COMPARISON: 10/30/2018 chest NUMBER OF VIEWS: 1 TECHNIQUE: Portable chest LIMITATIONS: None. FINDINGS: The heart size is stable. Mild elevation of the right hemidiaphragm. Osteopenia. Lungs clear. No pneumothorax IMPRESSION: No acute cardiopulmonary process copyright 2010 [employer]- All Rights Reserved
--- NOTE | 2019-12-07 05:10 | RADIOLOGY REPORT (SQ) ---
CLINICAL HISTORY: headache, new onset seizure COMPARISON: None. TECHNIQUE: CT HEAD WITHOUT IV CONTRAST on 12/07/2019 4:10 AM CDT This exam was performed according to our departmental dose-optimization program, which includes automated exposure control, adjustment of the mA and/or kV according to patient size and/or use of iterative reconstruction technique. FINDINGS: There is extensive bifrontal vasogenic edema within the white matter. Hollingsworth-white differentiation is preserved. There is no hydrocephalus. There is no significant volume loss for age. The calvarium is intact. Orbits and globes are unremarkable. The paranasal sinuses are clear. Mastoid air cells are clear. IMPRESSION: Extensive nonspecific bifrontal vasogenic edema. Recommend contrast enhanced CT or preferably MRI for further evaluation.
[2019-12-07 06:36] LABS: APPEARANCE,URINE SLIGHTLY-CLOUDY; BILIRUBIN,URINE NEGATIVE (NEGATIVE); COLOR,URINE YELLOW; GLUCOSE, URINE NEGATIVE (NEGATIVE); KETONES,URINE NEGATIVE (NEGATIVE); LEUKOCYTE ESTERASE,URINE NEGATIVE (NEGATIVE); NITRITE,URINE NEGATIVE (NEGATIVE); PROTEIN,URINE NEGATIVE (NEGATIVE); URINE SPECIFIC GRAVITY 1.015; UROBILINOGEN,URINE NEGATIVE mg/dL (<2.0)
[2019-12-07 06:47] LABS: URINE AMPHETAMINES SCREEN NEGATIVE; URINE BARBITURATES SCREEN NEGATIVE; URINE BENZODIAZEPINES SCREEN NEGATIVE; URINE COCAINE SCREEN NEGATIVE; URINE MARIJUANA (THC) SCREEN NEGATIVE; URINE METHADONE SCREEN NEGATIVE; URINE PHENCYCLIDINE SCREEN NEGATIVE
--- NOTE | 2019-12-07 10:09 | RADIOLOGY REPORT (SQ) ---
EXAM DESCRIPTION: MRI HEAD COMBO IMAGES COMPLETED DATE/TIME: 12/07/2019 9:49 am REASON FOR STUDY: extensive bifrontal vasogenic edema on noncon ct COMPARISON: CT from earlier same date. TECHNIQUE: Multiplanar imaging includes noncontrasted T1, T2, FLAIR, diffusion with ADC map and post gadolinium contrast T1 sequences. Images stored on PACS. CONTRAST TYPE AND DOSE: 10 mL Prohance. RENAL FUNCTION: Not indicated. ACR Type II contrast agent associated with few, if any, unconfounded cases of NSF LIMITATIONS: None. FINDINGS: ANATOMY: Generally normal appearance with intact midline structures in appropriate vascula r flow voids. CSF SPACES: There is a large extra-axial mass inferior to the bilaterally frontal lobes. This enhanc ing lesion lifts the frontal lobes and posteriorly extends slightly inferiorly to exert mass effect o n the proximal optic nerves and abut the pituitary stalk and cavernous carotids. Enhancing dural fitz ls particularly extending laterally. The lesion is centered in the midline at extends to the right a nd left of the falx. The mass measures up to 5 cm transverse dimension. Over 2.5 cm craniocaudal. Just over 4 cm AP. Extra-axial spaces otherwise look normal. No hemorrhage or abnormal fluid. . CEREBRUM: The above-noted extra-axial lesion exerts considerable mass on the inferior aspect of the f rontal lobes with associated edema throughout the frontal lobes extending into the anterior corpus ca llosum. No other areas of abnormal enhancement. No parenchymal hemorrhage detected. POSTERIOR FOSSA: No signal alteration. No hemorrhage. No edema, masses, or mass effect. Internal galen tory canals, cerebellopontine angles, mastoids normal. No enhancing lesions. No abnormal enhancement post contrast. DIFFUSION IMAGING: Negative for acute or subacute infarction. ORBITS: No masses. Globes normal. PARANASAL SINUSES: No fluid levels. Mucosa normal. OTHER: No other significant finding. IMPRESSION: 1. Large midline anterior inferior frontal extra-axial mass. Probably a sizable meningioma, although this looks more aggressive than the typical meningioma with regional mass effect and associated bifr ontal brain edema. 2. No evidence of recent CVA. EVIDENCE OF ACUTE STROKE: NO. TECHNICAL DOCUMENTATION: JOB ID: [id number] 2010 [employer]- All Rights Reserved Reading location - IP/workstation name: [email or web address]
[2019-12-07] MEDS ORDERED: LEVETIRACETAM 1500 MG/NACL-ISO 1,500 MG/100 ML RTUPB IV ONE (10:34)
[2019-12-07] MEDS ORDERED: DEXAMETHASONE SOD PHOSPHATE INJ 4 MG/1 ML VIAL IV ONE (10:45)
[2019-12-07] MEDS ORDERED: MANNITOL IV ONE (11:15)
[2019-12-07] MEDS ORDERED: DEXTROSE 5%-LACTATED RINGERS 1,000 ML IV ONE (13:26)
--- NOTE | 2019-12-07 15:00 | RADIOLOGY REPORT (SQ) ---
EXAM DESCRIPTION: CHEST SINGLE VIEW IMAGES COMPLETED DATE/TIME: 12/07/2019 1:42 pm REASON FOR STUDY: seizure COMPARISON: 12/07/2019 EXAM PARAMETERS: NUMBER OF VIEWS: One view. TECHNIQUE: Single frontal radiographic view of the chest acquired. RADIATION DOSE: NA LIMITATIONS: None. FINDINGS: LUNGS AND PLEURA: No opacities, masses or pneumothorax. No pleural effusion. MEDIASTINUM AND HILAR STRUCTURES: No masses. Contour normal. HEART AND VASCULAR STRUCTURES: Heart normal in size. Normal vasculature. BONES: No acute findings. HARDWARE: None in the chest. OTHER: No other significant finding. IMPRESSION: NO ACUTE RADIOGRAPHIC FINDING IN THE CHEST. TECHNICAL DOCUMENTATION: JOB ID: [id number] 2010 [employer]- All Rights Reserved Reading location - IP/workstation name: [email or web address]
[2019-12-07] MEDS: DEXAMETHASONE SOD PHOSPHATE INJ 4 MG/1 ML VIAL IV SCH ×2 (17:07→21:58)
[2019-12-07] MEDS ORDERED: LEVETIRACETAM 500 MG TABLET PO SCH (18:00)
--- NOTE | 2019-12-07 19:19 | EKG REPORT ---
SEVERITY:- NORMAL ECG - SINUS RHYTHM : Confirmed by: Aziza Guo 07-Dec-2019 19:18:43
--- NOTE | 2019-12-08 00:04 | ER Document Report ---
Doctor's Note Notes: 12/07/19 23:59 Patient was turned over to me pending neurosurgery bed at [facility], but no beds are currently available and unable to say when they would be so I contacted other hospitals to see if anybody had neurosurgery beds available right now. Patient accepted to [facility] by Dr. Kapadia but they said they have no beds available and that we would have to call back every 4 hours to check again for bed availability if we want to send her there. Patient accepted to [facility] by Dr. Ramos/BRENTON Velez and they currently have beds available. [employer] [facility] is calling the other hospitals to cancel transfer there. [facility] ETA half an hour. Patient is happy to go to [facility] and nurses calling patient's daughter to let her know. Patient otherwise feels greatly improved and denies having any symptoms at this time is sleeping comfortably, but easily awakens to normal level of consciousness and has appropriate conversation every time I go into the room and talk to her. Patient remains appropriate for transfer.
[2019-12-08 00:49] VITALS: BP 101/69
== END 2019-12-08 00:49 | disposition short-term general hospital (02) ==
LOC: ER 03:33
DX: D32.0 Benign neoplasm of cerebral meninges (principal); G93.6 Cerebral edema; R56.9 Unspecified convulsions; R41.82 Altered mental status, unspecified; R51 Headache; R22.0 Localized swelling, mass and lump, head
CPT/HCPCS: 93005; 96376; 99291; 96361; 96375; 96365; 96366; 36415; 80307 ×2; 83735; 85025; 80053; 81001; 84484; 70553; 71045; 70450; 93010; A9576; J1100; J7121; J2150; J1953

== ENCOUNTER 2020-02-21 03:53 | Inpatient (IN) | payer OTHER ==
[2020-02-21] MEDS ORDERED: ONDANSETRON HCL INJ/PF 4 MG/2 ML SDV IV ONE (04:26)
[2020-02-21] MEDS ORDERED: MORPHINE SULFATE 10 MG/ML INJ IV ONE (04:26)
[2020-02-21] MEDS ORDERED: NORMAL SALINE 1000 ML 1,000 ML IV ONE (04:27)
--- NOTE | 2020-02-21 04:28 | ER Document Report ---
ED GI/ - General TRAVEL OUTSIDE OF THE [place] IN LAST 30 DAYS: No <MADHURI HEADLEY - Last Filed: 02/21/20 07:28> <JOSEPHKATIE Mag - Last Filed: 02/21/20 17:28> - General Chief Complaint: Abdominal Pain Stated Complaint: CONSTIPATION Time Seen by Provider: 02/21/20 04:19 Notes: Patient is a 55-year-old female who comes emergency department for chief complaint of severe abdominal pain and abdominal swelling. She states that symptoms started at about 11 PM last night and have not stopped. She denies nausea or vomiting, fever chills, flank pain, chest pain, urinary symptoms. La st bowel movement was earlier today which was small, last full bowel movement was about 2 days ago. She denies problems with constipation. She is not on opiates. She has had an appendectomy and a . She also reports history of brain meningioma with removal and she is on Keppra secondary to this, she is not on radiation or chemotherapy. She denies medical history otherwise. Daughter at bedside. (MADHURI HEADLEY) - Related Data Allergies/Adverse Reactions: No Known Allergies Allergy (Verified 02/21/20 04:11) Past Medical History - General Information source: Patient - Social History Smoking Status: Former Smoker Frequency of alcohol use: Rare Drug Abuse: None Lives with: Family Family History: Reviewed & Not Pertinent Patient has homicidal ideation: No Neurological Medical History: Reports: Hx Seizures Renal/ Medical History: Denies: Hx Peritoneal Dialysis Malignancy Medical History: Reports: Hx Brain Cancer - Meningioma, status post removal GI Medical History: Reports: Hx Gastroesophageal Reflux Disease Past Surgical History: Reports: Hx Appendectomy, Hx Section - x1 - Immunizations Hx Diphtheria, Pertussis, Tetanus Vaccination: Yes <MADHURI HEADLEY - Last Filed: 02/21/20 07:28> Review of Systems - Review of Systems Constitutional: No symptoms reported EENT: No symptoms reported Cardiovascular: No symptoms reported Respiratory: No symptoms reported Gastrointestinal: See HPI Genitourinary: No symptoms reported Female Genitourinary: No symptoms reported Musculoskeletal: No symptoms reported Skin: No symptoms reported Hematologic/Lymphatic: No symptoms reported Neurological/Psychological: No symptoms reported <MADHURI HEADLEY - Last Filed: 02/21/20 07:28> Physical Exam <MADHURI HEADLEY - Last Filed: 02/21/20 07:28> - Vital signs Vitals: Temp Pulse Resp BP Pulse Ox 97.5 F 82 14 138/83 H 100 02/21/20 04:00 02/21/20 04:00 02/21/20 04:00 02/21/20 04:00 02/21/20 04:00 - Notes Notes: GENERAL: Patient is alert and interactive, however she is restless and appears to be in pain HEAD: Normocephalic, atraumatic. EYES: Pupils equal, round, and reactive to light. Extraocular movements intact. ENT: Oral mucosa moist, tongue midline. Oropharynx unremarkable. Airway patent. NECK: Full range of motion. Supple. Trachea midline. No lymphadenopathy. LUNGS: Clear to auscultation bilaterally, no wheezes, rales, or rhonchi. No respiratory distress. Non-tender chest wall. HEART: Regular rate and rhythm. No murmur ABDOMEN: Abdomen appears distended, there is generalized mid to upper abdominal tenderness especially towards the epigastric and left upper quadrant areas. Lower abdomen seems benign. There is a scar in the right lower quadrant. Bowel sounds are present throughout. Otherwise unremarkable. EXTREMITIES: Moves all 4 extremities spontaneously. No edema, normal radial and dorsalis pedis pulses bilaterally. No cyanosis. BACK: no cervical, thoracic, lumbar midline tenderness. No saddle anesthesia, normal distal neurovascular exam. Moves all extremities in full range of motion. NEUROLOGICAL: Alert and oriented x3. Normal speech. Cranial nerves II through XII grossly intact. Strength 5/5 in all extremities. PSYCH: Restless SKIN: Warm, dry, normal turgor. No rashes or lesions noted. (MADHURI HEADLEY) Course - Laboratory Result Diagrams: 02/21/20 04:37 02/21/20 04:37 <MADHURI HEADLEY - Last Filed: 02/21/20 07:28> - Laboratory Result Diagrams: 02/21/20 04:37 02/21/20 04:37 <KATIE RUIZ - Last Filed: 02/21/20 17:28> - Re-evaluation Re-evalutation: CBC unremarkable, chemistry shows borderline LFTs, borderline bicarb, otherwise unremarkable. Urinalysis unremarkable. Acute abdominal series nonspecific without overt free air or obstruction. Patient is more comfortable on reevaluation but is still having waves of intermittent nausea. Because of this and patient's initial concerning evaluation I discussed with patient and decision was made to proceed with CAT scan. Differential includes bowel obstruction or less likely perforated viscus. Patient is having some discomfort and a lot of nausea and having difficulty drinking contrast, requesting nausea medication, this was provided. She has not had repeated vomiting however. 02/21/20 08:00 Report given to Senia Ruiz NP pending CAT scan results and disposition. (MADHURI HEADLEY) 02/21/20 09:12 0800-disposition given by BRENTON Dietrich. vitals are stable, patient is in no distress. Reviewed laboratory and diagnostic findings. Awaiting for CT abdomen pelvis with IV and oral contrast to results. patient evaluated at bedside. Patient has a history of brain meningioma that was removed and she is on Keppra. after speaking with daughter and patient, patient is on Prilosec for gastritis, she has never had an endoscopy. She recently established care with primary care provider, Dr. Davis. Is not complaining of any chest pain shortness of breath but is having abdominal pain. Denies any fevers or chills. Patient states that she does take her Prilosec almost daily, denies any black tarry stool, last bowel movement was yesterday. Patient states that her pain is better than when she originally came in. will obtain an ultrasound due to CT showing that there is ally-cholecystic fluid, otherwise CT of abdomen pelvis with IV and oral contrast unremarkable, no bowel obstruction, hernia, diverticulitis, appendix surgically removed, lipase normal, creatinine 0.3, BUN is 14, liver enzymes slightly elevated but nothing overtly concerning. Urinalysis unremarkable. Patient is having left upper quadrant, epigastric and right upper quadrant abdominal pain. Patient states she is feeling a little nauseous as well. Will give patient a GI cocktail as well as obtaining ultrasound of right upper quadrant. Spoke with patient and daughter regarding that likely 1100: Right upper quadrant ultrasound shows cholelithiasis and cholecystitis, liver enzymes are slightly elevated, bilirubin is normal, lipase unremarkable. 1114-consulted with Dr. Hicks, surgeon, he states he will come down and see patient patient remains n.p.o.. 02/21/20 11:39: Dr. Hicks at bedside and states that he will admit patient, she will remain n.p.o. we will start IV antibiotics and likely go to surgery tomorrow. He is requesting that her medical records of her recent brain surgery be faxed over due to patient having some anxiety about having a cholecystectomy. Vital signs are stable, patient is agreeable with plan of care. (KATIE RUIZ) - Vital Signs Vital signs: Temp Pulse Resp BP Pulse Ox 97.9 F 71 18 160/73 H 96 02/21/20 14:51 02/21/20 14:51 02/21/20 14:51 02/21/20 14:51 02/21/20 14:51 - Laboratory Laboratory results interpreted by nm: 02/21/20 02/21/20 04:37 04:40 Chloride 111 H Carbon Dioxide 20 L AST 41 H ALT 38 H Ur Leukocyte Esterase TRACE H Discharge <MADHURI HEADLEY - Last Filed: 02/21/20 07:28> - Discharge Admitting Provider: Dr. Willard Gilbert Unit Admitted: Surgical Floor <KATIE RUIZ - Last Filed: 02/21/20 17:28> - Discharge Clinical Impression: Nausea, Abdominal swelling, Cholecystitis Abdominal pain Qualifiers: Abdominal location: generalized Qualified Code(s): R10.84 - Generalized abdominal pain Condition: Stable Disposition: ADMITTED INPATIENT
[2020-02-21 04:53] LABS: ABSOLUTE BASOPHILS # (AUTO) 0.1 10^3/uL (0.0-0.2); ABSOLUTE EOSINOPHILS # (AUTO) 0.3 10^3/uL (0.0-0.6); ABSOLUTE LYMPHOCYTES (AUTO) 2.5 10^3/uL (0.5-4.7); ABSOLUTE MONOCYTES (AUTO) 0.4 10^3/uL (0.1-1.4); ABSOLUTE NEUT (AUTO) 4.5 10^3/uL (1.7-8.2); BASOPHILS % (AUTO) 1.2 % (0-2); EOSINOPHILS % (AUTO) 3.2 % (0-6); HEMATOCRIT 41.1 % (36.0-47.0); HEMOGLOBIN 14.1 g/dL (12.0-15.5); LYMPHOCYTES % (AUTO) 32.6 % (13-45); MEAN CORPUSCULAR HEMOGLOBIN 32.2 pg (27.0-33.4); MEAN CORPUSCULAR HGB CONC 34.4 g/dL (32.0-36.0); MEAN CORPUSCULAR VOLUME 93 fl (80-97); MONOCYTES % (AUTO) 5.3 % (3-13); PLATELET COUNT 264 10^3/uL (150-450); RED CELL DISTRIBUTION WIDTH 13.4 % (11.5-14.0); SEGMENTED NEUTROPHILS % (AUTO) 57.7 % (42-78); TOTAL CELLS COUNTED % (AUTO) 100 %; WHITE BLOOD COUNT 7.8 10^3/uL (4.0-10.5)
[2020-02-21 05:10] LABS: ALBUMIN 4.3 g/dL (3.5-5.0); ALKALINE PHOSPHATASE 103 U/L (38-126); ANION GAP 12 (5-19); ASPARTATE AMINO TRANSFERASE 41 U/L (14-36); BILIRUBIN,DIRECT 0.4 mg/dL (0.0-0.4); BILIRUBIN,TOTAL 0.7 mg/dL (0.2-1.3); BLOOD UREA NITROGEN 14 mg/dL (7-20); CALCIUM 9.5 mg/dL (8.4-10.2); CARBON DIOXIDE 20 mmol/L (22-30); CHLORIDE 111 mmol/L (98-107); GLUCOSE 103 mg/dL (75-110); POTASSIUM 4.4 mmol/L (3.6-5.0); TOTAL PROTEIN 7.1 g/dL (6.3-8.2)
--- NOTE | 2020-02-21 05:10 | RADIOLOGY REPORT (SQ) ---
Acute abdominal series x-ray three views on 02/21/2020 at 4:45 AM CLINICAL INDICATION: Severe generalized abdominal pain, swelling COMPARISON: Chest x-ray from 12/07/[address] abdomen and pelvis from 08/16/2019 FINDINGS: CHEST: The lungs are clear. Cardiac, hilar and mediastinal contours are within normal limits. Pulmonary vascularity is within normal limits. ABDOMEN: Calcification in the right pelvis is consistent with a phlebolith. There is no free air. Bowel gas pattern is unremarkable. No increased stool to suggest significant constipation is noted. No other abnormal calcification or mass effect is noted. No bony normality is noted. IMPRESSION: 1. No acute cardiopulmonary disease. 2. Nonspecific abdomen.
[2020-02-21 05:12] LABS: APPEARANCE,URINE CLEAR; BILIRUBIN,URINE NEGATIVE (NEGATIVE); COLOR,URINE STRAW; GLUCOSE, URINE NEGATIVE (NEGATIVE); KETONES,URINE NEGATIVE (NEGATIVE); LEUKOCYTE ESTERASE,URINE TRACE (NEGATIVE); NITRITE,URINE NEGATIVE (NEGATIVE); PROTEIN,URINE NEGATIVE (NEGATIVE); UROBILINOGEN,URINE NEGATIVE mg/dL (<2.0)
[2020-02-21] MEDS ORDERED: METOCLOPRAMIDE HCL INJ/PF 10 MG/2 ML SDV IV ONE (05:33)
--- NOTE | 2020-02-21 08:46 | RADIOLOGY REPORT (SQ) ---
EXAM DESCRIPTION: CT ABD/PELVIS WITH IV ORAL IMAGES COMPLETED DATE/TIME: 02/21/2020 8:13 am REASON FOR STUDY: abd pain and swelling COMPARISON: 08/16/2019 TECHNIQUE: CT scan of the abdomen and pelvis performed using helical scanning technique with dynamic intravenous contrast injection. No oral contrast. Images reviewed with lung, soft tissue, and bone windows. Reconstructed coronal and sagittal MPR images reviewed. Delayed images for evaluation of the urinary system also acquired. All images stored on PACS. All CT scanners at this facility use dose modulation, iterative reconstruction, and/or weight based d osing when appropriate to reduce radiation dose to as low as reasonably achievable (ALARA). [facility]: Dose Right [facility]: CareDose [facility]: Dose Right [facility]: Teradose 4D [facility]: TalentBin CONTRAST TYPE AND DOSE: contrast/concentration: Isovue 350.00 mmol/ml; Total Contrast Delivered: 77. 0 ml; Total Saline Delivered: 66.9 ml RENAL FUNCTION: GFR > 60. RADIATION DOSE: CT Rad equipment meets quality standard of care and radiation dose reduction techniq ues were employed. CTDIvol: 5.4 - 7.3 mGy. DLP: 700 mGy-cm.. LIMITATIONS: None. FINDINGS: LOWER CHEST: Minimal interstitial changes in the lung bases. LIVER: Normal size. No masses. No dilated ducts. SPLEEN: Normal size. No focal lesions. PANCREAS: No masses. No significant calcifications. No adjacent inflammation or peripancreatic fluid collections. Pancreatic duct not dilated. GALLBLADDER: Possible pericholecystic fluid. ADRENAL GLANDS: No significant masses or asymmetry. RIGHT KIDNEY AND URETER: No solid masses. No significant calcifications. No hydronephrosis or hyd roureter. LEFT KIDNEY AND URETER: No solid masses. No significant calcifications. No hydronephrosis or hydr oureter. AORTA AND VESSELS: No aneurysm. No dissection. Renal arteries, SMA, celiac without stenosis. RETROPERITONEUM: No retroperitoneal adenopathy, hemorrhage or masses. BOWEL AND PERITONEAL CAVITY: Diverticulosis without diverticulitis. APPENDIX: Surgically absent. PELVIS: No mass. No free fluid. Normal bladder. ABDOMINAL WALL: No masses. No hernias. BONES: No significant or acute findings. OTHER: No other significant finding. IMPRESSION: Possible pericholecystic fluid. Diverticulosis without diverticulitis. COMMENT: Consider correlation with right upper quadrant ultrasound. TECHNICAL DOCUMENTATION: JOB ID: [id number] Quality ID # [id number]: Final reports with documentation of one or more dose reduction techniques (e.g., Au tomated exposure control, adjustment of the mA and/or kV according to patient size, use of iterative reconstruction technique) 2010 [employer]- All Rights Reserved Reading location - IP/workstation name: [email or web address]
[2020-02-21] MEDS ORDERED: METOCLOPRAMIDE HCL ORAL SOLN 10 MG/10 ML UDCUP PO ONE (09:27)
[2020-02-21] MEDS ORDERED: LIDOCAINE 2% VISCOUS SOLN 15 ML UDCUP PO ONE (09:27)
[2020-02-21] MEDS ORDERED: MAG HYDROX/AL HYDROX/SIMETH SUSP 30 ML UDCUP PO ONE (09:27)
--- NOTE | 2020-02-21 10:17 | RADIOLOGY REPORT (SQ) ---
EXAM DESCRIPTION: U/S ABDOMEN COMPLETE W/O DOP IMAGES COMPLETED DATE/TIME: 02/21/2020 9:56 am REASON FOR STUDY: pericholecystic fluid on CT abd/pelvis,+abd pain COMPARISON: None. TECHNIQUE: Dynamic and static grayscale images acquired of the abdomen and recorded on PACS. Additio nal selected color Doppler and spectral images recorded. Note: Study does not meet criteria for complete doppler/duplex scan LIMITATIONS: None. FINDINGS: PANCREAS: No masses. Visualized pancreatic duct normal caliber. LIVER: No masses. Echotexture normal. LIVER VASCULATURE: Normal directional flow of the main portal vein and hepatic veins. GALLBLADDER: Gallstone. Pericholecystic fluid. ULTRASOUND-DETECTED DENNEY'S SIGN: Negative. INTRAHEPATIC DUCTS AND COMMON DUCT: CBD and intrahepatic ducts normal caliber. No filling defects. INFERIOR VENA CAVA: Normal flow. AORTA: No aneurysm. RIGHT KIDNEY: Normal size. Normal echogenicity. No solid or suspicious masses. No hydronephros is. No calcifications. LEFT KIDNEY: Normal size. Normal echogenicity. No solid or suspicious masses. No hydronephrosi s. No calcifications. SPLEEN: Normal size. No solid masses. PERITONEAL AND PLEURAL SPACES: No ascites or effusions. OTHER: No other significant finding. IMPRESSION: Cholelithiasis and cholecystitis. TECHNICAL DOCUMENTATION: JOB ID: [id number] 2010 [employer]- All Rights Reserved Reading location - IP/workstation name: [email or web address]
[2020-02-21] MEDS ORDERED: NEOSTIGMINE METHYLSULFATE 10 MG/10 ML VIAL ONE (10:26)
[2020-02-21] MEDS ORDERED: VECURONIUM BROMIDE INJ 10 MG VIAL IV ONE (10:26)
[2020-02-21] MEDS ORDERED: SUCCINYLCHOLINE CHLORIDE INJ 200 MG/10 ML VIAL ONE (10:26)
[2020-02-21] MEDS ORDERED: GLYCOPYRROLATE 1 MG/5 ML VIAL ONE (10:26)
[2020-02-21] MEDS ORDERED: NORMAL SALINE INJ/PF 0.9% 10 ML SDV ONE (10:26)
[2020-02-21] MEDS ORDERED: KETOROLAC TROMETHAMINE INJ/PF 30 MG/1 ML SDV IV PRN (11:59)
--- NOTE | 2020-02-21 12:14 | PDOC H&P ---
History of Present Illness Admission Date/PCP: ZIA BRASWELL Patient complains of: Abdominal pain History of Present Illness: MEHRAN ENGLE is a 55 year old female Presents emergency department via ground rescue complaining of acute onset abdom inal pain last p.m. associated with nausea anorexia. Last bowel movement yesterday, normal. Patient was evaluated emergency department where she was found to have minimally elevated AST and ALT, and a CT scan of the abdomen and pelvis with IV and oral contrast which showed a dilated gallbladder with pericholecystic fluid. A subsequent ultrasound revealed cholelithiasis. Total bilirubin normal. Patient has a history of gastritis, was given a GI cocktail without complete improvement. Surgery was consulted for acute cholecystitis with cholelithiasis, and patient was advised admission. Of note patient speaks some Latvian, but primarily speaks to her daughter who is familiar with patient's recent medical care. Patient is 2 months status post craniotomy for benign frontal meningioma. Antwan linda presented with seizure, and had intraoperative seizure as well. She is on Keppra. She has had no seizures since discharge from [facility]. Past Medical History Past Medical History: History of seizure disorder; history of frontal meningioma; history of gastritis Neurological Medical History: Reports: Seizures Malignancy Medical History: Reports: Brain Cancer - Meningioma, status post removal GI Medical History: Reports: Gastroesophageal Reflux Disease Past Surgical History Past Surgical History: Craniotomy November 2019 [facility] Past Surgical History: Reports: Appendectomy, Section - x1 Social History Information Source: Patient Lives with: Family Smoking Status: Former Smoker Electronic Cigarette use?: No Hx Recreational Drug Use: No Hx Prescription Drug Abuse: No Family History Family History: None, Reviewed & Not Pertinent Parental Family History Reviewed: No Children Family History Reviewed: No Sibling(s) Family History Reviewed.: No Medication/Allergy Home Medications: Levetiracetam [Keppra 500 mg Tablet] 500 mg PO Q12 02/21/20 Omeprazole Magnesium [Prilosec Otc] 20 mg PO PRN PRN 02/21/20 Allergies/Adverse Reactions: No Known Allergies Allergy (Verified 02/21/20 04:11) Review of Systems Constitutional: PRESENT: other - Patient very anxious Eyes: ABSENT: visual disturbances Ears: ABSENT: hearing changes Cardiovascular: ABSENT: chest pain, dyspnea on exertion, edema, orthropnea, palpitations Gastrointestinal: PRESENT: as per HPI Musculoskeletal: ABSENT: joint swelling Neurological: PRESENT: other - Seizure disorder, controlled since brain surgery 2 months ago on Keppra Psychiatric: PRESENT: as per HPI Endocrine: ABSENT: cold intolerance, heat intolerance, polydipsia, polyuria Physical Exam Vital Signs: Temp Pulse Resp BP Pulse Ox 97.7 F 63 16 127/70 H 100 02/21/20 06:50 02/21/20 06:50 02/21/20 06:50 02/21/20 06:50 02/21/20 06:50 Intake & Output 02/20/20 02/21/20 02/22/20 06:59 06:59 06:59 Intake Total 1000 Balance 1000 Weight 67.132 kg General appearance: PRESENT: other Head exam: PRESENT: normocephalic, other - Healing frontal scar Eye exam: PRESENT: EOMI Mouth exam: PRESENT: dry mucosa Neck exam: PRESENT: full ROM Respiratory exam: PRESENT: clear to auscultation jad Cardiovascular exam: PRESENT: RRR Pulses: PRESENT: normal carotid pulses, normal radial pulses, normal femoral pulses Breast: PRESENT: Normal GI/Abdominal exam: PRESENT: other - Soft, not distended no peritoneal signs; tender right upper quadrant to deep palpation. No umbilical hernia, no groin hernias Rectal exam: PRESENT: deferred Extremities exam: PRESENT: full ROM Musculoskeletal exam: PRESENT: full ROM Neurological exam: PRESENT: oriented to person, oriented to place, oriented to time, oriented to situation Psychiatric exam: PRESENT: anxious Skin exam: PRESENT: dry Results Laboratory Results: 02/21/20 04:37 02/21/20 04:37 02/21/20 02/21/20 02/21/20 04:37 04:37 04:40 WBC 7.8 RBC 4.40 Hgb 14.1 Hct 41.1 MCV 93 MCH 32.2 MCHC 34.4 RDW 13.4 Plt Count 264 Seg Neutrophils % 57.7 Sodium 142.7 Potassium 4.4 Chloride 111 H Carbon Dioxide 20 L Anion Gap 12 BUN 14 Creatinine 0.73 Est GFR ( Amer) > 60 Glucose 103 Calcium 9.5 Total Bilirubin 0.7 AST 41 H Alkaline Phosphatase 103 Total Protein 7.1 Albumin 4.3 Lipase 122.4 Urine Color STRAW Urine Appearance CLEAR Urine pH 5.0 Ur Specific Black 1.010 Urine Protein NEGATIVE Urine Glucose (UA) NEGATIVE Urine Ketones NEGATIVE Urine Blood NEGATIVE Urine Nitrite NEGATIVE Ur Leukocyte Esterase TRACE H Urine WBC (Auto) 5 Urine RBC (Auto) 0 Impressions: Abdomen/Pelvis CT 02/21/20 00:00 IMPRESSION: Possible pericholecystic fluid. Diverticulosis without diverticulitis. Acute Abdomen Series 02/21/20 04:26 IMPRESSION: 1. No acute cardiopulmonary disease. 2. Nonspecific abdomen. Abdomen Ultrasound 02/21/20 09:09 IMPRESSION: Cholelithiasis and cholecystitis. Assessment & Plan - Diagnosis (1) Abdominal pain Qualifiers: Abdominal location: generalized Qualified Code(s): R10.84 - Generalized abdominal pain Is this a current diagnosis for this admission?: Yes Plan: Impression: Acute cholecystitis with cholelithiasis based on clinical history, laboratory profile, and radiologic demonstration of gallstones with pericholecystic fluid. Patient is not toxic, not septic. I have recommended admission, and interval surgical intervention. Recommendations: 1. Admit to surgical service, clear liquids today n.p.o. after midnight, and plan interval laparoscopic, possible open cholecystectomy tomorrow morning. We will keep patient on IV antibiotics in the interim. 2. We will obtain rapid COVID test; patient, speaking through her daughter, states she was COVID -2 months ago. 3. Patient, as well as daughter very concerned about patient undergoing another general anesthetic after recent brain surgery. I reassured her we will evaluate patient's perioperative risk, by reviewing her past medical records from [facility], and conferring with her neurologist and/or neurosurgeon from there. I will also review the case with Dr. Henry anesthesiologist for the weekend. (2) Cholecystitis Is this a current diagnosis for this admission?: Yes (3) Status post craniotomy Is this a current diagnosis for this admission?: Yes (4) Former smoker Is this a current diagnosis for this admission?: Yes (5) Seizure disorder Is this a current diagnosis for this admission?: Yes - Time Time Spent: 30 to 50 Minutes Critical Time spent with patient: 15-24 minutes Medications reviewed and adjusted accordingly: Yes Anticipated Discharge Disposition: Home, Self Care Anticipated Discharge Timeframe: within 48 hours - Inpatient Certification Based on my medical assessment, after consideration of the patient's comorbidities, presenting symptoms, or acuity I expect that the services needed warrant INPATIENT care.: Yes I certify that my determination is in accordance with my understanding of Medicare's requirements for reasonable and necessary INPATIENT services [42 CFR 412.3e].: Yes Medical Necessity: Need For IV Fluids, Need for Pain Control, Need for IV Antibiotics, Need for Surgery
[2020-02-21] MEDS: AMPICILLIN SODIUM/SULBACTAM NA 3 GM in NORMAL SALINE 100 ML IV SCH ×2 (15:09→22:23)
--- NOTE | 2020-02-21 21:54 | EKG REPORT ---
SEVERITY:- BORDERLINE ECG - SINUS RHYTHM BORDERLINE T ABNORMALITIES, ANTERIOR LEADS : Confirmed by: Ele Mendenhall MD 21-Feb-2020 21:54:01
[2020-02-21] MEDS: LEVETIRACETAM 500 MG TABLET PO SCH (22:23)
[2020-02-22] MEDS: AMPICILLIN SODIUM/SULBACTAM NA 3 GM in NORMAL SALINE 100 ML IV SCH ×2 (07:00→15:03)
[2020-02-22] MEDS ORDERED: ONDANSETRON HCL INJ/PF 4 MG/2 ML SDV ONE (07:36)
[2020-02-22] MEDS ORDERED: DEXAMETHASONE SOD PHOSPHATE INJ 4 MG/1 ML VIAL ONE (07:36)
[2020-02-22] MEDS ORDERED: PROPOFOL INJ 200 MG/20 ML VIAL IV ONE (07:36)
[2020-02-22] MEDS ORDERED: MIDAZOLAM 2 MG/2 ML INJ ONE (07:36)
[2020-02-22] MEDS ORDERED: KETOROLAC TROMETHAMINE 60 MG/2 ML SDV ONE (07:36)
[2020-02-22] MEDS ORDERED: FENTANYL CITRATE INJ/PF 100 MCG/2 ML AMPUL ONE (07:36)
[2020-02-22] MEDS ORDERED: INFLUENZA QUAD (6MOS+) 2020-21 VAC 0.5 ML SYR IM ONE (08:00)
[2020-02-22] MEDS ORDERED: BUPIVACAINE HCL 0.25 % INJ/PF (2.5 MG/1 ML) 30 ML VIAL ONE (08:53)
[2020-02-22] MEDS ORDERED: MORPHINE SULFATE 10 MG/ML INJ IV PRN (09:14)
[2020-02-22] MEDS ORDERED: MEPERIDINE HCL/PF INJ 25 MG/1 ML DISP.SYRIN IV PRN (09:14)
[2020-02-22] MEDS ORDERED: DIPHENHYDRAMINE HCL 50 MG/ML VIAL IV PRN (09:14)
[2020-02-22] MEDS ORDERED: PROMETHAZINE HCL INJ 25 MG/1 ML VIAL IV PRN ×2 (09:14)
[2020-02-22] MEDS ORDERED: ONDANSETRON HCL INJ/PF 4 MG/2 ML SDV IV PRN (09:14)
[2020-02-22] MEDS ORDERED: FENTANYL CITRATE INJ/PF 100 MCG/2 ML AMPUL IV PRN ×3 (09:14)
[2020-02-22] MEDS ORDERED: OXYCODONE-ACETAMINOPHEN 5-325 MG TABLET PO PRN ×3 (09:14→09:42)
--- NOTE | 2020-02-22 09:52 | Operative Report ---
Operative Report DATE OF SURGERY: 02/22/20 PREOPERATIVE DIAGNOSIS: 1. Acute cholecystitis with cholelithiasis. 2. Histo ry of seizure disorder. 3. Status post frontal craniotomy POSTOPERATIVE DIAGNOSIS: Same OPERATION: Laparoscopic cholecystectomy SURGEON: ROXY GUTIERREZ ANESTHESIA: GA TISSUE REMOVED OR ALTERED: 1 gallbladder COMPLICATIONS: None ESTIMATED BLOOD LOSS: Scant PROCEDURE: Patient was taken the preop holding area to the main operating room where general anesthesia was induced. Arms abducted abdomen exposed, prepped and draped in sterile fashion with Betadine and instrumentation set of a laparoscopic cholecystectomy. Surgical plan and surgical timeout were conducted. Markings were made on the skin for for port laparoscopy. Skin was anesthetized 1% plain lidocaine. A vertical incision was made above the umbilicus, Veress needle inserted the peritoneal cavity, and pneumoperitoneum was established. Veress needle removed, 5 mm port inserted and a 5 mm flexible viewing scope was inserted. There was no evidence of vascular or visceral injury. Under direct visualization 3 additional ports were placed 1 subxiphoid and 2 subcostal Peritoneal cavity revealed a distended, acutely inflamed but non-necrotic gallbladder. Photos were taken. The gallbladder was aspirated of approximately 50 cc of bile. Graspers were placed on the gallbladder body and mid fundus. Adhesions between the infundibulum and the gastroduodenal area were taken down with gentle hook cautery and blunt dissection. Grasper was now placed on the infundibulum, and the infundibulum extracted laterally and inferiorly to exposed the critical anatomy. The triangle of Calot was opened, and the critical view obtained. The cystic duct was in its normal location, slightly larger than 5 mm in diameter, and the cystic artery had 2 components which were dissected out. The superficial branch was clipped once proximally once distally divided with scissors. The dominant branch was in the triangle of Calot low, photographed, clipped twice proximally twice distally and divided with scissors. We photographed the critical view again from both the right and left sides and confirmed we were about to clip the cystic duct. This was done with 1 clipping on the gallbladder side only due to the wide diameter of the cystic duct. I now took the gallbladder down from the fundus, releasing it from the inferior surface of the liver without difficulty. Eventually the gallbladder was suspended solely by the cystic duct. Photo taken. A 0 PDS Endoloop was brought onto the field, positioned into place around the gallbladder and then cinched down onto the cystic duct. The cystic duct was now divided and the free end of the Endoloop divided. The gallbladder was now brought out of the patient through the supraumbilical port site uneventfully without spillage of stones or bile. We checked the peritoneal cavity for bleeding and bile leak and there was none. We carefully inspected the cystic artery and cystic duct stumps and they were intact with appropriate fixation devices. We felt the operation was complete. Sponge and needle counts are correct. All ports removed under direct visualization, pneumoperitoneum evacuated, wounds closed with 0 Vicryl 3-0 Vicryl benzoin and Steri-Strips. Patient was extubated taken to recovery room in stable condition. Discharge instructions provided in the orders.
[2020-02-22] MEDS ORDERED: DOCUSATE SODIUM 100 MG CAPSULE PO SCH (10:00)
--- NOTE | 2020-02-22 13:27 | PDOC DISCHARGE SUMMARY ---
General - Admit/Disc Date/PCP Admission Date/Primary Care Provider: 02/21/20 12:19 ZIA BRASWELL Discharge Date: 02/22/20 - Discharge Diagnosis Final Diagnosis: Symptomatic cholelithiasis with cholecystitis - Assessment Summary: Patient is a 55-year-old female with a history of abdominal pain nausea and vomiting. She was admitted to the surgical service for acute cholecystitis with cholelithiasis. Her liver function studies within normal limits. Her COVID test was negative. She is 2 months status post frontal craniotomy for benign brain tumor. She was kept n.p.o. and taken to the operating room on the morning of 02/22/2020 where she underwent laparoscopic cholecystectomy. She tolerated the operation well, voided postoperatively, tolerated diet and a mbulated and had adequate pain. By the afternoon of the day of surgery she was felt to have met maximum benefit from hospitalization was discharged home to the care of her family. Of note patient had no seizure activity during her hospitalization and will resume her pre-admission Keppra therapy - Additional Information Resuscitation Status: Full Code Discharge Activity: Activity As Tolerated - Patient will be discharged home to care of family, follow-up with Dr. Hicks at [place] [facility] in 1 to 2 weeks; she may shower in 24 hours: She will take Tylenol and/or Motrin as needed pain Referrals: TORI BURRIS FNP [Primary Care Provider] - Follow up as needed Home Medications: Acetaminophen [Acetaminophen Extra Strength] 500 mg PO DAILYP PRN 02/21/20 Levetiracetam [Keppra 500 mg Tablet] 500 mg PO Q12 02/21/20 Omeprazole Magnesium [Prilosec Otc] 20 mg PO ASDIR PRN 02/21/20 History of Present Illiness History of Present Illness: MEHRAN ENGLE is a 55 year old female Presents emergency department via ground rescue complaining of acute onset abdominal pain last p.m. associated with nausea anorexia. Last bowel movement yesterday, normal. Patient was evaluated emergency department where she was found to have minimally elevated AST and ALT, and a CT scan of the abdomen and pelvis with IV and oral contrast which showed a dilated gallbladder with pericholecystic fluid. A subsequent ultrasound revealed cholelithiasis. Total bilirubin normal. Patient has a history of gastritis, was given a GI cocktail without complete improvement. Surgery was consulted for acute cholecystitis with cholelithiasis, and patient was advised admission. Of note patient speaks some Amharic, but primarily speaks to her daughter who is familiar with patient's recent medical care. Patient is 2 months status post craniotomy for benign frontal meningioma. Patient presented with seizure, and had intraoperative seizure as well. She is on Keppra. She has had no seizures since discharge from [facility]. Physical Exam Vital Signs: Temp Pulse Resp BP Pulse Ox 98.2 F 73 17 141/66 H 96 02/22/20 12:45 02/22/20 12:45 02/22/20 12:45 02/22/20 12:45 02/22/20 12:45 Intake & Output 02/21/20 02/22/20 02/23/20 06:59 06:59 06:59 Intake Total 9624 105 9228 Output Total 805 Balance 1000 200 995 Weight 67.132 kg 66 kg Results Laboratory Results: WBC 7.8 10^3/uL (4.0-10.5) 02/21/20 04:37 RBC 4.40 10^6/uL (3.72-5.28) 02/21/20 04:37 Hgb 14.1 g/dL (12.0-15.5) 02/21/20 04:37 Hct 41.1 % (36.0-47.0) 02/21/20 04:37 MCV 93 fl (80-97) 02/21/20 04:37 MCH 32.2 pg (27.0-33.4) 02/21/20 04:37 MCHC 34.4 g/dL (32.0-36.0) 02/21/20 04:37 RDW 13.4 % (11.5-14.0) 02/21/20 04:37 Plt Count 264 10^3/uL (150-450) 02/21/20 04:37 Lymph % (Auto) 32.6 % (13-45) 02/21/20 04:37 [place] % (Auto) 5.3 % (3-13) 02/21/20 04:37 Eos % (Auto) 3.2 % (0-6) 02/21/20 04:37 Baso % (Auto) 1.2 % (0-2) 02/21/20 04:37 Absolute Neuts (auto) 4.5 10^3/uL (1.7-8.2) 02/21/20 04:37 Absolute Lymphs (auto) 2.5 10^3/uL (0.5-4.7) 02/21/20 04:37 Absolute Monos (auto) 0.4 10^3/uL (0.1-1.4) 02/21/20 04:37 Absolute Eos (auto) 0.3 10^3/uL (0.0-0.6) 02/21/20 04:37 Absolute Basos (auto) 0.1 10^3/uL (0.0-0.2) 02/21/20 04:37 Seg Neutrophils % 57.7 % (42-78) 02/21/20 04:37 Sodium 142.7 mmol/L (137-145) 02/21/20 04:37 Potassium 4.4 mmol/L (3.6-5.0) 02/21/20 04:37 Chloride 111 mmol/L (98-107) H 02/21/20 04:37 Carbon Dioxide 20 mmol/L (22-30) L 02/21/20 04:37 Anion Gap 12 (5-19) 02/21/20 04:37 BUN 14 mg/dL (7-20) 02/21/20 04:37 Creatinine 0.73 mg/dL (0.52-1.25) 02/21/20 04:37 Est GFR ( Amer) > 60 (>60) 02/21/20 04:37 Est GFR (MDRD) Non-Af > 60 (>60) 02/21/20 04:37 Glucose 103 mg/dL (75-110) 02/21/20 04:37 Calcium 9.5 mg/dL (8.4-10.2) 02/21/20 04:37 Total Bilirubin 0.7 mg/dL (0.2-1.3) 02/21/20 04:37 Direct Bilirubin 0.4 mg/dL (0.0-0.4) 02/21/20 04:37 Neonat Total Bilirubin Not Reportable 02/21/20 04:37 Neonat Direct Bilirubin Not Reportable 02/21/20 04:37 Neonat Indirect Bili Not Reportable 02/21/20 04:37 AST 41 U/L (14-36) H 02/21/20 04:37 ALT 38 U/L (<35) H 02/21/20 04:37 Alkaline Phosphatase 103 U/L (38-126) 02/21/20 04:37 Total Protein 7.1 g/dL (6.3-8.2) 02/21/20 04:37 Albumin 4.3 g/dL (3.5-5.0) 02/21/20 04:37 Lipase 122.4 U/L (23-300) 02/21/20 04:37 Urine Color STRAW 02/21/20 04:40 Urine Appearance CLEAR 02/21/20 04:40 Urine pH 5.0 (5.0-9.0) 02/21/20 04:40 Ur Specific [place] 1.010 02/21/20 04:40 Urine Protein NEGATIVE mg/dL (NEGATIVE) 02/21/20 04:40 Urine Glucose (UA) NEGATIVE mg/dL (NEGATIVE) 02/21/20 04:40 Urine Ketones NEGATIVE mg/dL (NEGATIVE) 02/21/20 04:40 Urine Blood NEGATIVE (NEGATIVE) 02/21/20 04:40 Urine Nitrite NEGATIVE (NEGATIVE) 02/21/20 04:40 Urine Bilirubin NEGATIVE (NEGATIVE) 02/21/20 04:40 Urine Urobilinogen NEGATIVE mg/dL (<2.0) 02/21/20 04:40 Ur Leukocyte Esterase TRACE (NEGATIVE) H 02/21/20 04:40 Urine WBC (Auto) 5 /HPF 02/21/20 04:40 Urine RBC (Auto) 0 /HPF 02/21/20 04:40 Urine Bacteria (Auto) TRACE /HPF 02/21/20 04:40 Squamous Epi Cells Auto 1 /HPF 02/21/20 04:40 Urine Mucus (Auto) RARE /LPF 02/21/20 04:40 Urine Ascorbic Acid NEGATIVE (NEGATIVE) 02/21/20 04:40 SARS-CoV-2 (PCR) NEGATIVE (NEGATIVE) 02/21/20 13:11 Impressions: Abdomen/Pelvis CT 02/21/20 00:00 IMPRESSION: Possible pericholecystic fluid. Diverticulosis without diverticulitis. Acute Abdomen Series 02/21/20 04:26 IMPRESSION: 1. No acute cardiopulmonary disease. 2. Nonspecific abdomen. Abdomen Ultrasound 02/21/20 09:09 IMPRESSION: Cholelithiasis and cholecystitis.
[2020-02-22] MEDS: LEVETIRACETAM 500 MG TABLET PO SCH (15:07)
[2020-02-22 16:49] VITALS: BP 131/63
== END 2020-02-22 16:30 | disposition home or self-care (01) | DRG 419 ==
LOC: ER 03:53 → EH 12:19 → 5 14:50
PROVIDERS: ADMIT Surgery; ATTEND Surgery
PROC: 0FT44ZZ Resection of Gallbladder, Percutaneous Endoscopic Approach (ICD-10-PCS; principal; 2020-02-22 09:00)
DX: K80.00 Calculus of gallbladder with acute cholecystitis without obstruction (principal); K21.9 Gastro-esophageal reflux disease without esophagitis; G40.909 Epilepsy, unspecified, not intractable, without status epilepticus; Z98.890 Other specified postprocedural states; Z86.011 Personal history of benign neoplasm of the brain; Z20.828 Contact with and (suspected) exposure to other viral communicable diseases
CPT/HCPCS: 36415; 74022; 74177; 76700; 790; 80053; 81001; 83690; 85025; 87635; 88304; 93005; 93010; 96361; 96374; 96375; 99285; C9803; J0295; J0330; J1100; J1885; J2250; J2270; J2405; J2704; J2710; J2765; J3010; J3490; J7030; J7050